=== PATIENT | male | born 1980 | race Caucasian/White ===

== ENCOUNTER 2023-07-13 14:45 | Emergency (ER) | payer OTHER, SELFPAY ==
[2023-07-13] VITALS (17 sets, daily range): BP systolic 121–148; BP diastolic 76–93; PULSE 66–85; RESP 16–22; TEMP 36.9–37.2; O2SAT 94–100; BMI 20.6
--- NOTE | 2023-07-13 15:06 | DI.CT.S_ITS ---
PROCEDURE: CT STROKE INDICATIONS: Positive BE-FAST, Stroke symptoms TECHNIQUE: Noncontrast 4.5 mm thick angled axial sections acquired from the foramen magnum to the vertex, with coronal reformats. For radiation dose reduction, the following was used: automated exposure control, adjustment of mA and/or kV according to patient size. COMPARISON: None. FINDINGS: Image quality: Diagnostic. CSF spaces: Basal cisterns are patent. No extra-axial fluid collections. Ventricles are normal in size and shape. Brain: No midline shift. No intracranial masses or hemorrhage. Wing-white matter interface is normal. Skull and face: Calvarium and visualized facial bones are intact, without suspicious lesions. Sinuses: There is opacification and mucosal thickening of all visualized paranasal sinuses. Findings are most pronounced in the ethmoid and bilateral maxillary sinuses. Mastoid air cells are clear. IMPRESSION: No acute intracranial pathology. Pansinusitis. Findings were discussed with Dr. Griffin at 1532 hrs PST. This study fulfills neurological imaging criteria for inclusion or exclusion of acute stroke therapies based on available published neurological imaging guidelines. Dictated by: Enrico Maki M.D. on 07/13/2023 at 15:29 Approved by: Enrico Maki M.D. on 07/13/2023 at 15:32
--- NOTE | 2023-07-13 15:06 | DI.RAD.S_ITS ---
PROCEDURE: XR CHEST 1V INDICATIONS: Possible stroke TECHNIQUE: One view of the chest was acquired. COMPARISON: None. FINDINGS: Surgical changes and devices: None. Lungs and pleura: Lungs are clear. No pleural effusions or pneumothorax. Mediastinum: Mediastinal contours appear normal. Heart size is normal. Bones and chest wall: No suspicious bony lesions. Overlying soft tissues appear unremarkable. IMPRESSION: No acute cardiopulmonary abnormalities or focal airspace disease. Dictated by: Enrico Maki M.D. on 07/13/2023 at 15:34 Approved by: Enrico Maki M.D. on 07/13/2023 at 15:34
--- NOTE | 2023-07-13 15:11 | DI.CT.S_ITS ---
PROCEDURE: CT ANGIO HEAD AND NECK INDICATIONS: Difficulty getting words out, numbness to BUE, now resolved TECHNIQUE: After the administration of intravenous contrast, 1 mm thick sections acquired from the aortic arch through the [place] of [place]. 3-dimensional snauzev-lhrzmmeoi-vdeeujbicv (MIP) and/or volume rendering reformats were acquired of the central intracranial vasculature and neck separately. For radiation dose reduction, the following was used: automated exposure control, adjustment of mA and/or kV according to patient size. COMPARISON: [facility], CT, CT STROKE, 07/13/2023, 15:17. FINDINGS: Image quality: Diagnostic. BRAIN: CSF spaces: Ventricles are normal in size and shape. Basal cisterns are patent. No extra-axial fluid collections. Brain: No midline shift. No intracranial masses. No suspicious enhancement. Wing-white matter interface appears intact. Skull and face: Calvarium and facial bones appear intact, without suspicious lesions. Orbits appear normal. Sinuses: Pansinusitis. Mastoids are clear. HEAD CT ANGIOGRAPHY: Anterior circulation: Intracranial internal carotid arteries appear patent without high-grade stenosis. There is flow/opacification within the paired anterior cerebral arteries. There is opacification within the middle cerebral arteries. The anterior communicating artery is seen. No aneurysms are seen. No occlusion. Posterior circulation: Visualized portions of the vertebral arteries are patent and join to form a normal appearing basilar artery. No evidence for high-grade stenosis. No occlusions. There is opacification of the posterior cerebral arteries. No aneurysms are seen. NECK CT ANGIOGRAPHY: Carotid system: The great vessels demonstrate a conventional anatomy as they arise from the aortic arch. The origins of the common carotid arteries appear patent. The common carotid arteries appear patent throughout their visualized courses without high grade stenosis. The bifurcation regions are both patent without high grade stenosis. The internal carotid arteries demonstrate normal calibers and courses. Posterior circulation: Atherosclerotic calcifications at the origin of the left vertebral artery. The origins of the vertebral arteries both appear patent without hemodynamically significant stenosis. The more superior extracranial portions of both vertebral arteries also demonstrate normal courses and calibers. They join to form a normal appearing basilar artery. Soft tissues: Visualized neck soft tissues demonstrate no suspicious abnormalities. Bones: No suspicious bony lesions. Visualized cervical spine appears normally aligned. No acute compression fractures of the vertebral bodies. IMPRESSION: Negative CT angiogram of the intracranial arterial and neck arterial vasculature without evidence for occlusion, dissection, or high-grade stenosis. No evidence for aneurysm. Pansinusitis. If there is persistent or high clinical suspicion for acute cerebrovascular ischemia/stroke, more sensitive evaluation with brain MRI can be considered. Any quantitative measurements of stenosis were performed using NASCET criteria. Dictated by: Enrico Maki M.D. on 07/13/2023 at 15:34 Approved by: Enrico Maki M.D. on 07/13/2023 at 15:42
--- NOTE | 2023-07-13 15:17 | ED.NEUROSD ---
HPI - Neuro Symptoms/Deficit <Andrew Griffin MD - Last Filed: 07/14/23 07:16> General Chief Complaint: Neuro Symptoms/Deficit Stated Complaint: Lt arm numbness, Trouble speaking, Tremors Time Seen by Provider: 07/13/23 15:17 Source: patient Mode of arrival: Wheelchair History of Present Illness HPI Narrative: 42-year-old male presents with episode of left-sided weakness, difficulty speaking, now fully resolved. History clarify from triage. History obtained from both patient and spouse. Patient is on treatment for multiple myeloma. He states he was feeling well today until around 2:20 p.m., when he developed shimmering in his vision, difficulty reading and expressing words. He understood words but had difficulty same. He was able to say some words. He then developed left upper extremity numbness. No clear focal weakness. He felt grossly lightheaded and weak momentarily, but this resolved. He has mild headache that was not sudden or severe. He denies any current symptoms. No current visual or hearing changes, focal numbness or weakness, lightheadedness, dysarthria, confusion. No fevers, chills, chest pain, back pain, abdominal pain, flank pain, neck pain, shortness of breath, trauma, or any other changes. This has not happened to him this way before. He confirms again he currently feels completely at baseline. On Anticoagulants: No Related Data Allergies Allergy/AdvReac Type Severity Reaction Status Date / Time midazolam [From Versed] AdvReac Intermediate Verified 07/13/23 15:13 sertraline [From Zoloft] AdvReac Intermediate Palpitation Verified 07/13/23 15:34 s Review of Systems <Andrew Griffin MD - Last Filed: 07/14/23 07:16> Review of Systems Narrative: Constitutional: no fever, no chills Eyes: + visual disturbance, no discharge Ears, Nose, Mouth, Throat: no rhinorrhea, no sore throat Cardiovascular: no chest pain, no palpitations Respiratory: no cough, no shortness of breath Gastrointestinal: no abdominal pain, no vomiting, no diarrhea Genitourinary: no dysuria, no hematuria Musculoskeletal: no back pain, no neck stiffness Skin: no rash, no wound Neurological: no focal weakness, + focal numbness Hematologic/Lymphatic On Anticoagulants: No Patient History <Andrew Griffin MD - Last Filed: 07/14/23 07:16> Social History Smoking Status: Never smoker Smoking Status: Never smoker alcohol intake frequency: 0-2 drinks per day Substance Use Type: does not use Exam <Andrew Griffin MD - Last Filed: 07/14/23 07:16> Narrative Exam Narrative: Const: no acute distress, non toxic appearing; calm, conversant, pleasant Eyes: PERRLA, EOMI ENT: mucous membranes moist Neck: supple, non-tender Resp: no respiratory distress, clear to auscultation bilaterally Card: regular rate and rhythm, no murmurs Abd: non tender diffusely, no rigidity or rebound or guarding Back: no T or L spine tenderness, no CVA tenderness bilaterally Extrem: no deformities, no swelling bilateral lower extremities Neuro: ANOx4. customer experience consultant 2-12 intact. No rotatory or vertical nystagmus. Normal tone all extremities. Sensation intact to light touch all extremities. No ankle clonus bilaterally. 5/5 motor strength all extremities. Normal FNF BUE; normal heel-barros test BLE. No pronator drift. Normal gait. No dysarthria. No neglect. Grossly normal cognition. Skin: no rash, warm and dry Initial Vital Signs Initial Vital Signs: Vital Signs Temperature 99 F 07/13/23 14:58 Pulse Rate 85 07/13/23 14:58 Respiratory Rate 16 07/13/23 14:58 Blood Pressure 133/89 07/13/23 14:58 Pulse Oximetry 97 07/13/23 14:58 Oxygen Delivery Method Room Air 07/13/23 14:58 <Lily Quiñones DO - Last Filed: 07/14/23 05:30> Initial Vital Signs Initial Vital Signs: Vital Signs Temperature 99 F 07/13/23 14:58 Pulse Rate 85 07/13/23 14:58 Respiratory Rate 16 07/13/23 14:58 Blood Pressure 133/89 07/13/23 14:58 Pulse Oximetry 97 07/13/23 14:58 Oxygen Delivery Method Room Air 07/13/23 14:58 Course <Andrew Griffin MD - Last Filed: 07/14/23 07:16> Course Course Narrative: This presentation is concerning for TIA, and the patient with potential expressive aphasia and left upper extremity weakness at minimum prior to arrival. Symptoms appear to have lasted for somewhere around 30-45 minutes. They have fully resolved. On multiple assessments of this patient, he currently has an NIHSS of 0. I have considered a broad differential in addition, including but not limited to sludging in the setting of multiple myeloma, hemorrhagic stroke, aneurysmal bleed, vascular dissection, electrolyte derangements, orthostatic hypotension, intravascular volume depletion, MAGEN, among others. No clear evidence of trauma or infection. I am pursuing immediate stroke workup and will closely reassess. Patient is clinically NOT a thrombolysis or thrombectomy candidate currently, which I have discussed with family and patient. He knows to immediately inform me if he has any new symptoms. EKG shows normal sinus rhythm without acute ischemia or immediately concerning interval prolongation. HCT negative per radiology report. Patient remains asymptomatic, with NIHSS of 0. CBC with no leukocytosis, with mild anemia without recent for comparison, no thrombocytopenia. Magnesium within normal limits. PTT mildly elevated. UDS negative. Chemistry grossly reassuring, without recent for comparison. INR within normal limits. Troponin negative. Urinalysis overall reassuring. Radiology CXR read: FINDINGS: Surgical changes and devices: None. Lungs and pleura: Lungs are clear. No pleural effusions or pneumothorax. Mediastinum: Mediastinal contours appear normal. Heart size is normal. Bones and chest wall: No suspicious bony lesions. Overlying soft tissues appear unremarkable. IMPRESSION: No acute cardiopulmonary abnormalities or focal airspace disease. Dictated by: Enrico Maki M.D. on 07/13/2023 at 15:34 CT HEAD: FINDINGS: Image quality: Diagnostic. CSF spaces: Basal cisterns are patent. No extra-axial fluid collections. Ventricles are normal in size and shape. Brain: No midline shift. No intracranial masses or hemorrhage. Wing-white matter interface is normal. Skull and face: Calvarium and visualized facial bones are intact, without suspicious lesions. Sinuses: There is opacification and mucosal thickening of all visualized paranasal sinuses. Findings are most pronounced in the ethmoid and bilateral maxillary sinuses. Mastoid air cells are clear. IMPRESSION: No acute intracranial pathology. Pansinusitis. Findings were discussed with Dr. Griffin at 1532 hrs PST. This study fulfills neurological imaging criteria for inclusion or exclusion of acute stroke therapies based on available published neurological imaging guidelines. Dictated by: Enrico Maki M.D. on 07/13/2023 at 15:29 CTA HEAD/NECK: FINDINGS: Image quality: Diagnostic. BRAIN: CSF spaces: Ventricles are normal in size and shape. Basal cisterns are patent. No extra-axial fluid collections. Brain: No midline shift. No intracranial masses. No suspicious enhancement. Wing-white matter interface appears intact. Skull and face: Calvarium and facial bones appear intact, without suspicious lesions. Orbits appear normal. Sinuses: Pansinusitis. Mastoids are clear. HEAD CT ANGIOGRAPHY: Anterior circulation: Intracranial internal carotid arteries appear patent without high-grade stenosis. There is flow/opacification within the paired anterior cerebral arteries. There is opacification within the middle cerebral arteries. The anterior communicating artery is seen. No aneurysms are seen. No occlusion. Posterior circulation: Visualized portions of the vertebral arteries are patent and join to form a normal appearing basilar artery. No evidence for high-grade stenosis. No occlusions. There is opacification of the posterior cerebral arteries. No aneurysms are seen. NECK CT ANGIOGRAPHY: Carotid system: The great vessels demonstrate a conventional anatomy as they arise from the aortic arch. The origins of the common carotid arteries appear patent. The common carotid arteries appear patent throughout their visualized courses without high grade stenosis. The bifurcation regions are both patent without high grade stenosis. The internal carotid arteries demonstrate normal calibers and courses. Posterior circulation: Atherosclerotic calcifications at the origin of the left vertebral artery. The origins of the vertebral arteries both appear patent without hemodynamically significant stenosis. The more superior extracranial portions of both vertebral arteries also demonstrate normal courses and calibers. They join to form a normal appearing basilar artery. Soft tissues: Visualized neck soft tissues demonstrate no suspicious abnormalities. Bones: No suspicious bony lesions. Visualized cervical spine appears normally aligned. No acute compression fractures of the vertebral bodies. IMPRESSION: Negative CT angiogram of the intracranial arterial and neck arterial vasculature without evidence for occlusion, dissection, or high-grade stenosis. No evidence for aneurysm. Pansinusitis. If there is persistent or high clinical suspicion for acute cerebrovascular ischemia/stroke, more sensitive evaluation with brain MRI can be considered. Any quantitative measurements of stenosis were performed using NASCET criteria. Dictated by: Enrico Maki M.D. on 07/13/2023 at 15:34 At this juncture, patient remains asymptomatic, with NIHSS of 0. I remain concerned for TIA but feel he merits brain MRI with and without contrast to ensure there is no evidence of metastatic lesion. If brain MRI is reassuring, I still feel admission for further assessment and treatment would be appropriate given the likelihood of a high-risk today. Holding aspirin pending MRI. Patient is stable. Signed out to Dr. Quiñones with this plan at 6:20PM. Orders Ordered: Discontinued Medications Sodium Chloride (Normal Saline 0.9%) 1,000 mls @ 1,000 mls/hr IV BOLUS ONE Stop: 07/13/23 16:31 Last Infusion: 07/13/23 17:28 Dose: Infused Documented By: Admin: 07/13/23 15:56 Dose: 1,000 mls/hr Documented By: MIKALA Ketorolac Tromethamine (Ketorolac 30 Mg/Ml Vial) 15 mg IV NOW ONE Stop: 07/13/23 20:19 Last Admin: 07/13/23 20:23 Dose: 15 mg Documented By: MIKALA Ondansetron HCl (Ondansetron 4 Mg/2 Ml Inj) 4 mg IV NOW PRN PRN Reason: Nausea And Vomiting Ondansetron HCl (Ondansetron 4 Mg Odt) 4 mg SL NOW PRN PRN Reason: Nausea And Vomiting Vital Signs Vital signs: Vital Signs - 8 hr 07/13/23 14:58 07/13/23 15:25 07/13/23 15:26 Temperature 99 F Pulse Rate 85 80 Respiratory Rate 16 Blood Pressure 133/89 148/93 H Pulse Oximetry 97 98 Oxygen Delivery Method Room Air Room Air 07/13/23 15:30 07/13/23 16:00 07/13/23 16:26 Temperature Pulse Rate 80 74 Respiratory Rate 18 Blood Pressure 133/76 Pulse Oximetry 99 98 Oxygen Delivery Method 07/13/23 16:26 07/13/23 16:30 07/13/23 16:30 Temperature Pulse Rate 73 71 Respiratory Rate 16 18 Blood Pressure 135/86 Pulse Oximetry 98 98 Oxygen Delivery Method Room Air 07/13/23 17:00 07/13/23 17:00 07/13/23 17:30 Temperature Pulse Rate 78 73 Respiratory Rate 20 22 Blood Pressure 128/81 Pulse Oximetry 100 100 Oxygen Delivery Method Room Air 07/13/23 17:30 07/13/23 18:00 07/13/23 18:47 Temperature Pulse Rate 79 75 Respiratory Rate 20 Blood Pressure 132/81 Pulse Oximetry 97 99 Oxygen Delivery Method 07/13/23 18:48 07/13/23 18:48 07/13/23 19:00 Temperature Pulse Rate 66 76 Respiratory Rate 16 16 Blood Pressure 121/80 Pulse Oximetry 99 99 Oxygen Delivery Method 07/13/23 19:00 07/13/23 19:30 07/13/23 19:30 Temperature Pulse Rate 74 Respiratory Rate 19 Blood Pressure 128/84 122/81 Pulse Oximetry 98 Oxygen Delivery Method 07/13/23 20:00 07/13/23 20:01 07/13/23 20:01 Temperature Pulse Rate 73 74 Respiratory Rate 22 21 Blood Pressure 129/88 Pulse Oximetry 99 94 Oxygen Delivery Method <Lily Quiñones, - Last Filed: 07/14/23 05:30> Orders Ordered: Discontinued Medications Sodium Chloride (Normal Saline 0.9%) 1,000 mls @ 1,000 mls/hr IV BOLUS ONE Stop: 07/13/23 16:31 Last Infusion: 07/13/23 17:28 Dose: Infused Documented By: Admin: 07/13/23 15:56 Dose: 1,000 mls/hr Documented By: MIKALA Ketorolac Tromethamine (Ketorolac 30 Mg/Ml Vial) 15 mg IV NOW ONE Stop: 07/13/23 20:19 Last Admin: 07/13/23 20:23 Dose: 15 mg Documented By: MIKALA Ondansetron HCl (Ondansetron 4 Mg/2 Ml Inj) 4 mg IV NOW PRN PRN Reason: Nausea And Vomiting Ondansetron HCl (Ondansetron 4 Mg Odt) 4 mg SL NOW PRN PRN Reason: Nausea And Vomiting Vital Signs Vital signs: Vital Signs - 8 hr 07/13/23 14:58 07/13/23 15:25 07/13/23 15:26 Temperature 99 F Pulse Rate 85 80 Respiratory Rate 16 Blood Pressure 133/89 148/93 H Pulse Oximetry 97 98 Oxygen Delivery Method Room Air Room Air 07/13/23 15:30 07/13/23 16:00 07/13/23 16:26 Temperature Pulse Rate 80 74 Respiratory Rate 18 Blood Pressure 133/76 Pulse Oximetry 99 98 Oxygen Delivery Method 07/13/23 16:26 07/13/23 16:30 07/13/23 16:30 Temperature Pulse Rate 73 71 Respiratory Rate 16 18 Blood Pressure 135/86 Pulse Oximetry 98 98 Oxygen Delivery Method Room Air 07/13/23 17:00 07/13/23 17:00 07/13/23 17:30 Temperature Pulse Rate 78 73 Respiratory Rate 20 22 Blood Pressure 128/81 Pulse Oximetry 100 100 Oxygen Delivery Method Room Air 07/13/23 17:30 07/13/23 18:00 07/13/23 18:47 Temperature Pulse Rate 79 75 Respiratory Rate 20 Blood Pressure 132/81 Pulse Oximetry 97 99 Oxygen Delivery Method 07/13/23 18:48 07/13/23 18:48 07/13/23 19:00 Temperature Pulse Rate 66 76 Respiratory Rate 16 16 Blood Pressure 121/80 Pulse Oximetry 99 99 Oxygen Delivery Method 07/13/23 19:00 07/13/23 19:30 07/13/23 19:30 Temperature Pulse Rate 74 Respiratory Rate 19 Blood Pressure 128/84 122/81 Pulse Oximetry 98 Oxygen Delivery Method 07/13/23 20:00 07/13/23 20:01 07/13/23 20:01 Temperature Pulse Rate 73 74 Respiratory Rate 22 21 Blood Pressure 129/88 Pulse Oximetry 99 94 Oxygen Delivery Method MDM - Neuro Symptoms/Deficit <Andrew Griffin MD - Last Filed: 07/14/23 07:16> Lab Data 07/13/23 15:13 07/13/23 15:13 Labs: Lab Results 07/13/23 07/13/23 Range/Units 15:13 15:13 WBC 4.6 (4.5-11.0) X10^3/uL RBC 4.30 L (4.5-5.9) X10^6/uL Hgb 12.4 L (13.5-17.5) g/dL Hct 37.3 L (41-53) % MCV 86.6 (80-100) fL MCH 28.8 (26-34) PG MCHC 33.2 (30-36) % RDW 15.5 H (11.6-14.8) % Plt Count 192 (150-400) X10^3/uL Neut % (Auto) 43.9 L (50-75) % Lymph % (Auto) 24.2 L (25-40) % [place] % (Auto) 16.8 H (3-14) % Eos % (Auto) 13.8 H (2-4) % Baso % (Auto) 1.3 (0-2) % Neut # (Auto) 2000 (6562-8412) /uL Lymph # (Auto) 1100 (1800-5825) /uL [place] # (Auto) 800 (0-900) /uL Eos # (Auto) 600 H (0-450) /uL Baso # (Auto) 100 (0-100) /uL PT 11.2 (9.4-12.5) SECONDS INR 1.0 (0.9-1.3) APTT 37 H (25.1-36.5) SECONDS Sodium 140 (137-145) mmol/L Potassium 3.8 (3.4-5.1) mmol/L Chloride 105 (98-107) mmol/L Carbon Dioxide 27 (22-32) mmol/L BUN 15 (9-20) mg/dL Creatinine 1.11 (0.66-1.25) mg/dL Estimated GFR > 60 (>60) mL/min BUN/Creatinine Ratio 13.5 (6-22) Glucose 107 H (70-100) mg/dL Calcium 8.4 (8.4-10.2) mg/dL Magnesium 1.8 (1.6-2.3) mg/dL Total Bilirubin 0.4 (0.2-1.3) mg/dL AST 35 (17-59) IU/L ALT 44 (<50) IU/L Alkaline Phosphatase 74 (38-126) U/L Total Creatine Kinase 51 L (55-170) U/L Troponin I < 0.012 (0.01-0.034) ng/mL Total Protein 8.6 H (6.3-8.2) g/dL Albumin 4.6 (3.5-5.0) g/dL Globulin 4.0 (1.7-4.1) g/dL Albumin/Globulin Ratio 1.2 (1.0-2.8) Urine Color Yellow Urine Appearance Clear Urine pH 5.5 Normal (4.5-8.0) Ur Specific [place] <=1.005 (1.000-1.035) Urine Protein Negative (Negative) Urine Glucose (UA) Negative (Negative) g/dL Urine Ketones Negative (NEGATIVE) Urine Occult Blood Negative (Negative) Urine Nitrate Negative (Negative) Urine Bilirubin Negative (NEGATIVE) Urine Urobilinogen 0.2 (0.2) E.U./dL Ur Leukocyte Esterase Negative (NEGATIVE) Urine RBC None seen (0-5/HPF) Urine WBC None seen (0-5/HPF) Ur Squamous Epith Cells 0-1 /hpf (0-5/HPF) Urine Bacteria Occasional (0-1) (None) Ur Culture Indicated? Cult not indicated Vol Urine Centrifuged 10ml (spun) U Opiates 300ng/mL cut Negative (Negative) Ur Oxycodone Screen Negative (Negative) Urine Methadone Screen Negative (Negative) Ur Barbiturates Screen Negative (Negative) U Tricyclic Antidepress Negative (Negative) Ur Phencyclidine Scrn Negative (Negative) Ur Amphetamines Screen Negative (Negative) U Methamphetamines Scrn Negative (Negative) Ur MDMA Scrn (Ecstasy) Negative (Negative) U Benzodiazepines Scrn Negative (Negative) Urine Cocaine Screen Negative (Negative) U Marijuana (THC) Screen Negative (Negative) Urine Specific [place] Normal (Normal) Ur Creatinine Normal (Normal) <Lily Quiñones, DO - Last Filed: 07/14/23 05:30> Lab Data Labs: Lab Results 07/13/23 07/13/23 Range/Units 15:13 15:13 WBC 4.6 (4.5-11.0) X10^3/uL RBC 4.30 L (4.5-5.9) X10^6/uL Hgb 12.4 L (13.5-17.5) g/dL Hct 37.3 L (41-53) % MCV 86.6 (80-100) fL MCH 28.8 (26-34) PG MCHC 33.2 (30-36) % RDW 15.5 H (11.6-14.8) % Plt Count 192 (150-400) X10^3/uL Neut % (Auto) 43.9 L (50-75) % Lymph % (Auto) 24.2 L (25-40) % [place] % (Auto) 16.8 H (3-14) % Eos % (Auto) 13.8 H (2-4) % Baso % (Auto) 1.3 (0-2) % Neut # (Auto) 2000 (1116-1355) /uL Lymph # (Auto) 1100 (5175-1874) /uL [place] # (Auto) 800 (0-900) /uL Eos # (Auto) 600 H (0-450) /uL Baso # (Auto) 100 (0-100) /uL PT 11.2 (9.4-12.5) SECONDS INR 1.0 (0.9-1.3) APTT 37 H (25.1-36.5) SECONDS Sodium 140 (137-145) mmol/L Potassium 3.8 (3.4-5.1) mmol/L Chloride 105 (98-107) mmol/L Carbon Dioxide 27 (22-32) mmol/L BUN 15 (9-20) mg/dL Creatinine 1.11 (0.66-1.25) mg/dL Estimated GFR > 60 (>60) mL/min BUN/Creatinine Ratio 13.5 (6-22) Glucose 107 H (70-100) mg/dL Calcium 8.4 (8.4-10.2) mg/dL Magnesium 1.8 (1.6-2.3) mg/dL Total Bilirubin 0.4 (0.2-1.3) mg/dL AST 35 (17-59) IU/L ALT 44 (<50) IU/L Alkaline Phosphatase 74 (38-126) U/L Total Creatine Kinase 51 L (55-170) U/L Troponin I < 0.012 (0.01-0.034) ng/mL Total Protein 8.6 H (6.3-8.2) g/dL Albumin 4.6 (3.5-5.0) g/dL Globulin 4.0 (1.7-4.1) g/dL Albumin/Globulin Ratio 1.2 (1.0-2.8) Urine Color Yellow Urine Appearance Clear Urine pH 5.5 Normal (4.5-8.0) Ur Specific [place] <=1.005 (1.000-1.035) Urine Protein Negative (Negative) Urine Glucose (UA) Negative (Negative) g/dL Urine Ketones Negative (NEGATIVE) Urine Occult Blood Negative (Negative) Urine Nitrate Negative (Negative) Urine Bilirubin Negative (NEGATIVE) Urine Urobilinogen 0.2 (0.2) E.U./dL Ur Leukocyte Esterase Negative (NEGATIVE) Urine RBC None seen (0-5/HPF) Urine WBC None seen (0-5/HPF) Ur Squamous Epith Cells 0-1 /hpf (0-5/HPF) Urine Bacteria Occasional (0-1) (None) Ur Culture Indicated? Cult not indicated Vol Urine Centrifuged 10ml (spun) U Opiates 300ng/mL cut Negative (Negative) Ur Oxycodone Screen Negative (Negative) Urine Methadone Screen Negative (Negative) Ur Barbiturates Screen Negative (Negative) U Tricyclic Antidepress Negative (Negative) Ur Phencyclidine Scrn Negative (Negative) Ur Amphetamines Screen Negative (Negative) U Methamphetamines Scrn Negative (Negative) Ur MDMA Scrn (Ecstasy) Negative (Negative) U Benzodiazepines Scrn Negative (Negative) Urine Cocaine Screen Negative (Negative) U Marijuana (THC) Screen Negative (Negative) Urine Specific [place] Normal (Normal) Ur Creatinine Normal (Normal) Imaging Data MR brain: Radiologist's Impression: 6 UserRM ? Lily Quiñones, [facility] ED ?10? My List ?7? Fast Track ?0? Waiting ?1? Surge ED ?0? [email or web address]? Raymond José? ? Junie? 36 F? Registered? 26m? 2-Emergent? Hypertension? High BP, 175/112? No Time Seen? REG ER? No Document? Sign Up Order BP 159/98 Pulse 92 Resp 16 Temp 97.7 F O2 Sat 97% (RA) R08? Fraser? ? Nilda? 73 F? In Room? 45m? 3-Urgent? Abdominal Pain? Abd Pain? No Time Seen? REG ER? No Document? Sign Up Order BP 173/77 Pulse 67 Resp 16 Temp 97.7 F O2 Sat 97% (RA) MAR NPO Diet Complete B... Chem EKG-12 Allison... Lipase Sta... POC/JENNA R12? Swain? ? Allisha? 40 F? With Doctor? 56m? 2-Emergent? ?? VC: 1? Chest Pain? chest pain/toperol isnt helping/post visit T-2? Sepsis, C19S/S? ?? 07/13/23 19:22? REG ER? No Document? Lily Quiñones August Order BP Pulse 124 Resp 14 Temp O2 Sat 97% ?Complete B... ?Chem PTT Partia... Troponin &... Lipase Sta... Magnesium ... ?Prothrombi... Imaging MAR EKG-12 Allison... NPO Diet Cardiac mo... R07? Hutchins? ? Angelica? 63 F? With Doctor? 1h 11m? 3-Urgent? Weakness? Gen weakness,hyperglycemia,+COVID 1 wk ago? ISO, C19S/S? ?? 07/13/23 18:24? REG ER? Draft? Lily Awan Order BP 130/64 Pulse 66 Resp 28 Temp O2 Sat 98% ?COVID19 -N... Imaging ?Urinalysis... MAR Ketones (B... EKG-12 Allison... NT-proBNP ... Chem Complete B... Lactate (L... Lipase Sta... Procalcito... Troponin &... Venous Blo... Microbiolo... R05? Haroon? ? Cristina? 9 M? With Doctor? 2h 6m? 3-Urgent? Upper Respiratory Symptoms? V blood/cough/nose bleeds? C19S/S? ?? 07/13/23 18:59? REG ER? Draft? Lily Zaman S Order BP Pulse 89 Resp 26 Temp 98.3 F O2 Sat 100% (RA) Imaging R10? Joe? ? Nilda? 74 F? Admitted Observation Patient? 3h 9m? 2-Emergent? Altered Mental Status? T101.2 UTI/tired? C19S/S, ? 07/13/23 16:35? ADM MIHIR? Signed? Andrew Griffin August coor aware 1817 ? Order BP 141/75 Pulse 91 Resp 27 Temp O2 Sat 92% (RA) ?Complete B... ?Chem Imaging POC/JENNA Ammonia (N... ?Prothrombi... Acetaminop... Ethanol (E... Salicylate... ?Urine Drug... ?Urinalysis... Ictotest U... MAR EKG-12 Allison... EKG-12 Allison... Venous Blo... Microbiolo... Transfer p... Code Statu... R02? Derting? ? Holly? 23 F? Ready for Discharge? 3h 21m? 2-Emergent? She/Her/Hers? ?? Chest Pain? CHEST PAIN, DIZZY NAUSEA TREMORS? 07/13/23 17:58? REG ER? Draft? Lily Zaman S ? Order BP 107/64 Pulse 65 Resp 19 Temp O2 Sat 99% Troponin I... Troponin I... ?Complete B... ?Chem HCG Quanti... Imaging EKG-12 Allison... R04? Aguero? ? Heri? 42 M? With Doctor? 4h 46m? 2-Emergent? Neuro Symptoms/Deficit? Lt arm numbness, Trouble speaking, Tremors? 07/13/23 15:17? REG ER? Draft? Lily Rivas f/u MRI brain Order BP 128/84 Pulse 76 Resp 16 Temp O2 Sat 99% ?Complete B... Magnesium ... ?PTT Partia... Urine Drug... ?Chem Prothrombi... ?Troponin &... Imaging Urinalysis... MAR NPO Diet EKG-12 Allison... Cardiac mo... R06? [place]? ? Alejandra? 73 F? With Doctor? 5h 22m? 3-Urgent? Abdominal Pain? Stage 4 liver disease? 07/13/23 14:18? REG ER? Draft? Lily Ruvalcaba H repeat cmp/EKG @ 1930 Order BP 130/61 Pulse 88 Resp Temp O2 Sat 97% ?Chem Imaging Covid-19 +... ?Complete B... Troponin I... Lipase Sta... Prothrombi... MAR EKG-12 Allison... Urinalysis... Chem R11? Rosemarie Olivaong? ? Ekachai? 61 M? With Doctor? 22h 19m? 2-Emergent? Neuro Symptoms/Deficit? rt side hurts/numbness/can't lift rt arm? 07/13/23 01:40? REG ER? Draft? Lilynelly Quiñones August MRI resulted Order BP 139/91 Pulse 86 Resp 17 Temp O2 Sat 94% ?Lipase Sta... Troponin &... Imaging Troponin I... ?Complete B... ?Chem Magnesium ... ?PTT [place]ia... Prothrombi... MAR NPO Diet EKG-12 Allison... Cardiac mo... EKG-12 Allison... General (R... Consult to... Imaging - CT Stroke; CT angio head and neck; MR head/brain wo/w con; XR chest 1V Heri Aguero??42??M??1980 ? Allergy/Adv: midazolam, sertraline Close Results Imaging ACTIVITY DATE EXAM STATUS AUTHOR 07/13/23 16:29 Brain MRI Signed Enrico Maki 07/13/23 15:11 Head/Neck CTA Signed Enrico Maki 07/13/23 15:[address] Signed Enrico Maki 07/13/23 15:06 Chest X-Ray Signed Enrico Maki Imaging Reports Close Brain MRI (Signed) MakiEnrico - 07/13/23 Head/Neck CTA (Signed) MakiEnrico - 07/13/[address] (Signed) Enrico Maki - 07/13/23 Chest X-Ray (Signed) Enrico Maki - 07/13/23 [place] [address] Magnetic Resonance Report Signed Patient: Heri Aguero MR#: [id number] : 1980 Acct:[id number] Age/Sex: 42 / M Date of Service: 07/13/23 Loc: ED Accession Number: [id number] Procedure: MR head/brain wo/w con Ordering Provider: Andrew Griffin MD PROCEDURE: MR HEAD/BRAIN WO/W CON INDICATIONS: possible TIA (speech/vision changes, LUE changes), mult myel TECHNIQUE: Noncontrast axial T1 spin echo, axial T2 fast spin echo, sagittal and axial FLAIR, coronal T2 fast spin echo, axial gradient echo, axial diffusion and ADC through the brain. After the administration of contrast, axial and coronal and sagittal 3D VIBE or T1 spin echo with fat saturation through the brain. COMPARISON: None. FINDINGS: Image quality: Diagnostic CSF Spaces: Basal cisterns are patent. No extra-axial fluid collections. Ventricles are normal in size and shape. Brain: No midline shift. No intracranial bleeds or masses. No abnormal intracranial enhancement. The brainstem appears normal. Diffusion-weighted images demonstrate no acute infarct. No chronic ischemic insults. Normal intravascular flow voids are present. Contrast enhanced images of the intracranial arterial vasculature appear widely patent without evidence for hemodynamically significant stenosis, occlusion, or aneurysm. Skull and face: Calvarial marrow is normal in signal. Orbits appear normal. Sinuses: Mastoid air cells are clear. Pansinusitis. IMPRESSION: MRI brain without acute intracranial abnormalities. No evidence for acute ischemia/infarction. Unremarkable appearance of the intracranial arterial vasculature within the limits of this study. Pansinus disease. Dictated by: Enrico Maki M.D. on 07/13/2023 at 19:21 Approved by: Enrico Maki M.D. on 07/13/2023 at 19:22 [facility] Narrative Medical decision making narrative: 07/13/23 Dr. Quiñones: Patient signed out to myself by Dr. Griffin. Patient is seen and independently evaluated by myself had symptoms concerning for possible stroke or TIA which have since resolved. Patient does have a history of multiple myeloma, not on any current anticoagulation. Workup including head CT shows pansinusitis but no other acute intracranial pathology and CT angio and chest x-ray were negative. Rate MR is also read as negative. Labs show white count of 4.6, hemoglobin of 12, platelets of 192. Predominance of monocytes. INR is 1, electrolytes, renal function, CMP and troponin are negative. UA shows occasional bacteria but no other signs of infection, 1 squamous epithelial. U tox is negative. Reviewed patient's history. He is on aspirin 81 mg daily, use on metoprolol for prior heart failure thought to be secondary to his treatment. He has had a stem cell transplant. After discussion reviewed his symptoms sounds like he had somewhat atypical symptoms but did have some expressive aphasia, numbness and tingling but ended up being on both sides at 1 point. Patient states lasted about an hour has since resolved. Discussed to put in for observation TIA workup, patient would like to return home. He is unsure of his last echo but has had them. Was on aspirin 324 prior and we discussed returning to this dose. Patient will reach out to his oncology team Saturday morning. Does continue to have headaches we discussed us to possibilities, we will give a dose of pain medication. Discussed return precautions. Discharge Plan Departure Patient Disposition: Home Clinical Impression: Transient cerebral ischemia Activity Restrictions/Additional Instructions: Your workup today including CT angiography and brain MRI showed no acute change. Your labs did not show a clear source of your symptoms today. Some of your symptoms seem consistent with possibly a TIA. Please contact your medical team Saturday morning for follow-up. I would recommend returning to an aspirin 324 mg. You can take tylenol and/or ibuprofen as tolerated as needed. Please return for recurrent symptoms, severe headaches, sudden vision changes, fevers, facial droop, numbness, weakness or difficulty with moving extremities or ambulating, difficulties with speech or other new or concerning changes. Stand Alone Forms: Patient Portal/API
[2023-07-13 15:21] LABS: Appearance Urine UA CLEAR; Bilirubin Urine UA NEGATIVE (NEGATIVE); Color Urine UA YELLOW; Glucose Urine UA NEGATIVE (Negative); Ketones Urine UA NEGATIVE (NEGATIVE); Leukocyte Esterase Urine UA NEGATIVE (NEGATIVE); Nitrite Urine UA NEGATIVE (Negative); Occult Blood Urine UA NEGATIVE (Negative); Protein Urine UA NEGATIVE (Negative); Specific Gravity Urine UA <=1.005 (1.000-1.035); Urobilinogen Urine UA 0.2 E.U./dL (0.2); pH Urine UA 5.5 (4.5-8.0)
[2023-07-13 15:22] LABS: Add Manual Diff / Slide Review NO; Basophils Absolute Auto 100 /uL (0-100); Basophils Percent Auto 1.3 % (0-2); Eosinophils Absolute Auto 600 /uL (0-450); Eosinophils Percent Auto 13.8 % (2-4); Hematocrit 37.3 % (41-53); Hemoglobin 12.4 g/dL (13.5-17.5); Lymphocytes Absolute Auto 1100 /uL (1100-4500); Lymphocytes Percent Auto 24.2 % (25-40); Mean Corpuscular HGB Conc 33.2 % (30-36); Mean Corpuscular Hemoglobin 28.8 PG (26-34); Mean Corpuscular Volume 86.6 fL (80-100); Monocytes Absolute Auto 800 /uL (0-900); Monocytes Percent Auto 16.8 % (3-14); Neutrophils Absolute Auto 2000 /uL (1500-7000); Neutrophils Percent Auto 43.9 % (50-75); Platelet Count 192 X10^3/uL (150-400); Red Cell Distribution Width 15.5 % (11.6-14.8); White Blood Cell Count 4.6 X10^3/uL (4.5-11.0)
[2023-07-13 15:28] LABS: Prothrombin Time 11.2 SECONDS (9.4-12.5)
[2023-07-13 15:30] LABS: PTT Partial Thromboplastin Tim 37 SECONDS (25.1-36.5)
[2023-07-13 15:32] LABS: Alanine Aminotransferase 44 IU/L (<50); Albumin 4.6 g/dL (3.5-5.0); Albumin Globulin Ratio 1.2 (1.0-2.8); Alkaline Phosphatase 74 U/L (38-126); Aspartate Aminotransferase 35 IU/L (17-59); BUN Creatinine Ratio 13.5 (6-22); Bilirubin Total 0.4 mg/dL (0.2-1.3); Blood Urea Nitrogen 15 mg/dL (9-20); Calcium 8.4 mg/dL (8.4-10.2); Carbon Dioxide 27 mmol/L (22-32); Chloride 105 mmol/L (98-107); Creatine Kinase 51 U/L (55-170); Estimated Glomerular Filt Rate > 60 mL/min (>60); Glucose 107 mg/dL (70-100); HEMOLYSIS < 15 (0-50); Magnesium 1.8 mg/dL (1.6-2.3); Potassium 3.8 mmol/L (3.4-5.1); Sodium 140 mmol/L (137-145); Total Protein 8.6 g/dL (6.3-8.2)
[2023-07-13 15:36] LABS: UR Morphine/Opiate cutoff 300 Negative (Negative); Ur Creatinine Normal (Normal); Ur Specific Gravity Normal (Normal); Urine Amphetamines Negative (Negative); Urine Barbiturates Negative (Negative); Urine Benzodiazepines Negative (Negative); Urine Cocaine Negative (Negative); Urine MDMA Negative (Negative); Urine Methadone Negative (Negative); Urine Methamphetamines Negative (Negative); Urine Oxycodone Negative (Negative); Urine Phencyclidine Negative (Negative); Urine Tetrahydrocannabinol Negative (Negative); Urine Tricyclic Antidepressant Negative (Negative); Urine pH Normal (Normal)
[2023-07-13 15:44] LABS: Troponin I < 0.012 ng/mL (0.01-0.034)
[2023-07-13 15:50] LABS: Bacteria Urine Occasional (0-1); Culture Indicated Urine Cult Not Indicated; RBC Urine None Seen (0-5/HPF); Squamous Epithelial Cell Urine 0-1 /HPF (0-5/HPF); Urine Volume 10mL (spun); WBC Urine None Seen (0-5/HPF)
[2023-07-13] MEDS: SODIUM CHLORIDE 0.9% 1,000 ML 1000 ML IV (15:56)
--- NOTE | 2023-07-13 16:29 | DI.MRI.S_ITS ---
PROCEDURE: MR HEAD/BRAIN WO/W CON INDICATIONS: possible TIA (speech/vision changes, LUE changes), mult myel TECHNIQUE: Noncontrast axial T1 spin echo, axial T2 fast spin echo, sagittal and axial FLAIR, coronal T2 fast spin echo, axial gradient echo, axial diffusion and ADC through the brain. After the administration of contrast, axial and coronal and sagittal 3D VIBE or T1 spin echo with fat saturation through the brain. COMPARISON: None. FINDINGS: Image quality: Diagnostic CSF Spaces: Basal cisterns are patent. No extra-axial fluid collections. Ventricles are normal in size and shape. Brain: No midline shift. No intracranial bleeds or masses. No abnormal intracranial enhancement. The brainstem appears normal. Diffusion-weighted images demonstrate no acute infarct. No chronic ischemic insults. Normal intravascular flow voids are present. Contrast enhanced images of the intracranial arterial vasculature appear widely patent without evidence for hemodynamically significant stenosis, occlusion, or aneurysm. Skull and face: Calvarial marrow is normal in signal. Orbits appear normal. Sinuses: Mastoid air cells are clear. Pansinusitis. IMPRESSION: MRI brain without acute intracranial abnormalities. No evidence for acute ischemia/infarction. Unremarkable appearance of the intracranial arterial vasculature within the limits of this study. Pansinus disease. Dictated by: Enrico Maki M.D. on 07/13/2023 at 19:21 Approved by: Enrico Maki M.D. on 07/13/2023 at 19:22
[2023-07-13] MEDS: KETOROLAC 30 MG/ML VIAL 15 MG IV (20:23)
== END 2023-07-13 20:43 | disposition home or self-care (01) ==
PROVIDERS: Emergency Medicine; Emergency Provider Emergency Medicine
DX: G45.9 Transient cerebral ischemic attack, unspecified (principal)
CPT/HCPCS: 36415; 70450; 70496; 70498; 70553; 71045; 80053; 80305; 81001; 82550; 83735; 84484; 85025; 85610; 85730; 93005; 96361; 96374; 99284; 99285; A9579; J1885; Q9967